=== PATIENT | female | born 1995 | race African-American/Black ===

== ENCOUNTER 2017-08-29 22:42 | Emergency (ER) | payer OTHER ==
[~2017-08-29] VITALS: Ht 152.4 cm; Wt 154.2 kg
[~2017-08-29 22:42] MED LIST: NAPROSYN500 MG PO; NOHOMEMEDICATIONS; NORCO 5-325 TA1 EACH PO; NORFLEX100 MG PO
[2017-08-29] MEDS ORDERED: NAPROSYN500 MG PO (23:35)
[2017-08-30 00:16] VITALS: BP 141/93
== END 2017-08-30 00:17 | disposition home or self-care (01) ==
LOC: ER 22:42
DX: T23.221A Burn of second degree of single right finger (nail) except thumb, initial encounter (principal); T31.0 Burns involving less than 10% of body surface; E28.2 Polycystic ovarian syndrome; K21.9 Gastro-esophageal reflux disease without esophagitis; X15.3XXA Contact with hot saucepan or skillet, initial encounter; Y93.89 Activity, other specified; Y92.89 Other specified places as the place of occurrence of the external cause; Y99.8 Other external cause status

== ENCOUNTER 2018-09-17 23:00 | Emergency (ER) | payer BC, OTHER ==
[~2018-09-17] VITALS: Ht 152.4 cm; Wt 158.8 kg
[2018-09-17] MEDS ORDERED: CORTISPORIN OTI10 M2 OTIC (23:41)
[2018-09-17] MEDS ORDERED: BACTRIM DS TAB1 EACH PO (23:41)
[2018-09-18 00:11] VITALS: BP 145/81
== END 2018-09-18 00:11 | disposition home or self-care (01) ==
LOC: ER 23:00
DX: H60.02 Abscess of left external ear (principal); K21.9 Gastro-esophageal reflux disease without esophagitis; Z90.49 Acquired absence of other specified parts of digestive tract

== ENCOUNTER 2019-04-13 12:23 | Emergency (ER) | payer BC, OTHER ==
[~2019-04-13] VITALS: Ht 152.4 cm; Wt 158.8 kg
[~2019-04-13 12:23] MED LIST changes: +BACTRIM DS TAB1 EACH PO; +CORTISPORIN OTI10 M2 OTIC
[2019-04-13 14:13] LABS: URINE BILIRUBIN NEGATIVE (Negative); URINE BLOOD NEGATIVE (Negative); URINE KETONES NEGATIVE (Negative); URINE SPECIFIC GRAVITY <= 1.005 (1.005-1.035)
[2019-04-13 14:23] LABS: URINE CLARITY CLOUDY; URINE COLOR R; URINE PROTEIN (DIPSTICK) NEGATIVE (Negative)
[2019-04-13 14:24] VITALS: BP 110/58
[2019-04-13 14:24] LABS: URINE REDUCING SUBSTANCE NEGATIVE
[2019-04-13 14:28] LABS: SQUAMOUS >10 Many /LPF (0-3)
[2019-04-13 14:29] LABS: BACTERIA-REFLEX None Seen /HPF (None Seen); CASTS None Seen /LPF (None Seen); CRYSTALS None Seen /LPF (None Seen); URINE RBC >20 Many /HPF (0-2); URINE WBC-REFLEX 6-15 Few /HPF (0-5)
[2019-04-13] MEDS ORDERED: PHENAZOPYRIDIN200 M2 PO (14:57)
[2019-04-13] MEDS ORDERED: MACROBID 100 M100 M2 PO (14:57)
== END 2019-04-13 15:07 | disposition home or self-care (01) ==
LOC: ER 12:23
PROVIDERS: Physician Assistant
DX: N39.0 Urinary tract infection, site not specified (principal); E28.2 Polycystic ovarian syndrome; K21.9 Gastro-esophageal reflux disease without esophagitis; E66.01 Morbid (severe) obesity due to excess calories; Z68.44 Body mass index [BMI] 60.0-69.9, adult

== ENCOUNTER 2019-04-17 05:08 | Emergency (ER) | payer BC, OTHER ==
[~2019-04-17] VITALS: Ht 152.4 cm; Wt 158.8 kg
[~2019-04-17 05:08] MED LIST changes: +MACROBID 100 M100 M2 PO; +PHENAZOPYRIDIN200 M2 PO
[2019-04-17] MEDS ORDERED: PREDNISONE 20 M20 MG PO (06:39)
[2019-04-17 06:44] VITALS: BP 127/78
== END 2019-04-17 06:50 | disposition home or self-care (01) ==
LOC: ER 05:08
DX: K12.2 Cellulitis and abscess of mouth (principal); K21.9 Gastro-esophageal reflux disease without esophagitis; E28.2 Polycystic ovarian syndrome; E66.01 Morbid (severe) obesity due to excess calories; Z68.44 Body mass index [BMI] 60.0-69.9, adult

== ENCOUNTER 2019-07-08 11:34 | Emergency (ER) | payer BC, OTHER ==
[~2019-07-08] VITALS: Ht 152.4 cm; Wt 158.8 kg
[~2019-07-08 11:34] MED LIST changes: +PREDNISONE 20 M20 MG PO
[2019-07-08 12:41] LABS: URINE BILIRUBIN NEGATIVE (Negative); URINE BLOOD TRACE (Negative); URINE CLARITY SL CLOUDY; URINE COLOR YELLOW; URINE GLUCOSE-RANDOM* NEGATIVE (Negative); URINE KETONES TRACE (Negative); URINE LEUKOCYTES-REFLEX NEGATIVE (Negative); URINE NITRITE-REFLEX NEGATIVE (Negative); URINE PROTEIN (DIPSTICK) TRACE (Negative)
[2019-07-08] MEDS ORDERED: MUCINEX D ER 11 EACH PO (14:31)
[2019-07-08] MEDS ORDERED: ZOFRAN ODT4 MG PO (14:31)
[2019-07-08 14:48] VITALS: BP 139/96
[2019-07-08 16:22] LABS: ABSOLUTE NEUTROPHILS 3.7 thou/uL (1.4-8.2); BASOPHILS 0.7 % (0.0-2.0); EOSINOPHILS 1.3 % (0.0-3.0); HEMATOCRIT 40.3 % (37.0-47.0); HEMOGLOBIN 12.9 gm/dL (12.0-15.0); LYMPHOCYTES 40.3 % (24.0-44.0); MCH 24.7 pg (26.0-34.0); MCHC 31.9 g/dL (28.0-37.0); MCV 77.6 fL (80.0-100.0); MONOCYTES 4.5 % (1.0-8.0); PLATELET COUNT 379 thou/uL (150-400); POLYS 53.2 % (36.0-66.0)
[2019-07-08 16:25] LABS: CALCIUM 9.9 mg/dL (8.5-10.1); CREATININE 0.9 mg/dL (0.6-1.0); POTASSIUM 3.9 mmol/L (3.5-5.1)
[2019-07-08 16:33] LABS: ALBUMIN 3.4 g/dL (3.4-5.0); TOTAL BILIRUBIN 0.2 mg/dL (<0.1-1.0); TOTAL PROTEIN 8.4 g/dL (6.4-8.2)
== END 2019-07-08 14:45 | disposition home or self-care (01) ==
LOC: ER 11:34
PROVIDERS: Emergency Medicine
DX: B34.9 Viral infection, unspecified (principal); R19.7 Diarrhea, unspecified; K21.9 Gastro-esophageal reflux disease without esophagitis; E66.01 Morbid (severe) obesity due to excess calories; Z68.44 Body mass index [BMI] 60.0-69.9, adult; Z90.49 Acquired absence of other specified parts of digestive tract

== ENCOUNTER 2021-08-29 20:26 | Emergency (ER) | payer OTHER ==
[~2021-08-29] VITALS: Ht 152.4 cm; Wt 158.8 kg
[2021-08-29 20:26] VITALS: BP 153/93
[~2021-08-29 20:26] MED LIST changes: +MUCINEX D ER 11 EACH PO; +ZOFRAN ODT4 MG PO
[2021-08-29 21:52] LABS: URINE BILIRUBIN NEGATIVE (Negative); URINE BLOOD NEGATIVE (Negative); URINE CLARITY CLEAR; URINE COLOR YELLOW; URINE GLUCOSE-RANDOM* NEGATIVE (Negative); URINE KETONES NEGATIVE (Negative); URINE NITRITE-REFLEX NEGATIVE (Negative); URINE PROTEIN (DIPSTICK) NEGATIVE (Negative); URINE SPECIFIC GRAVITY 1.015 (1.005-1.035); URINE UROBILINOGEN 0.2 E.U./dl (0.2-1.0)
[2021-08-29 21:54] LABS: URINE LEUKOCYTES-REFLEX 1+ (Negative)
[2021-08-29 22:04] LABS: BACTERIA-REFLEX 1-9 Few /HPF (None Seen); CASTS None Seen /LPF (None Seen); CRYSTALS None Seen /LPF (None Seen); MUCUS 0-3 Light strn/LPF (None Seen); SQUAMOUS 4-10 Moderate /LPF (0-3); URINE RBC None Seen /HPF (NONE SEEN); URINE WBC-REFLEX 0-5 Rare /HPF (0-5)
[2021-08-30] MEDS ORDERED: MELOXICAM15 MG PO (00:10)
[2021-08-30] MEDS ORDERED: LORAZEPAM 0.50.5 MG PO (00:12)
[2021-08-30] MEDS ORDERED: ZOLOFT 50 MG TA50 MG PO (00:12)
== END 2021-08-30 00:20 | disposition home or self-care (01) ==
LOC: ER 20:26
PROVIDERS: Nurse Practitioner
DX: R10.12 Left upper quadrant pain (principal); M25.552 Pain in left hip; K21.9 Gastro-esophageal reflux disease without esophagitis; E66.01 Morbid (severe) obesity due to excess calories; F12.90 Cannabis use, unspecified, uncomplicated; Z90.49 Acquired absence of other specified parts of digestive tract; Z68.44 Body mass index [BMI] 60.0-69.9, adult; Z79.899 Other long term (current) drug therapy